=== PATIENT | male | born 1990 | race Caucasian/White ===

== ENCOUNTER 2021-11-25 17:03 | Emergency (ER) | payer OTHER, SELFPAY ==
--- NOTE | 2021-11-25 17:07 | ED.GENADUL_ITS ---
Discharge Plan Disposition Patient Disposition: HOME Condition: Stable Discharge Details Clinical Impression: COVID-19, Medication administered Primary Care Provider: Ella,Local ED Provider: Angie Yi Discharge Instructions Instructions: COVID-19 (Coronavirus Disease 2019) (ED) Additional Instructions: Your kidney function today is within normal limits. You are being given a normal dosing regimen of the anti-viral medication Paxlovid to take as directed until finished. Drink plenty of fluids and get plenty of rest. Alternate tylenol and motrin as needed and directed for pain. Follow-up with your primary care doctor in 1 week. Return to the emergency department with any worsening or new concerning symptoms. Discharge Data Discharge Physician: Angie Yi Medical Decision Making 31-year-old male with a history of developmental delay, asthma, ADHD presents for sinus congestion, postnasal drip and headache for the past 2 days with a home antigen test positive for COVID 3 hours ago. Vitals within normal limits. Patient appears comfortable and nontoxic. He denies any shortness of breath normal lung sounds bilaterally and oxygen saturation 100% on room air. Normal ENT exam. Patient is requesting medication for COVID. As he has a history of asthma, will start Paxlovid. BMP obtained and within normal limits. Paxlovid dispensed. He is visiting from [place]. Advised to follow up with the primary care doctor for re-evaluation. Usual and customary return precautions given prior to discharge. Medical Records Medical records reviewed: Yes I reviewed the patient's medical records. HPI General Mode of arrival: ambulatory . Date/Time Provider Initiated Documentation: 11/25/21 17:07 . Limitations to Documentation: no limitations . Information obtained by: patient and family . HPI Narrative: Patient is a 31-year-old male with a history of developmental delay, asthma, ADHD who presents for nasal congestion, postnasal drip, headache and feeling feverish for the past 2 days. States he is visiting from [place] with his family and was exposed to COVID. He took a home antigen test today which was positive. Patient presents with his father at bedside who states that he felt a positive home antigen result. Patient denies any known documented fever, chest pain, shortness of breath, abdominal pain, vomiting or diarrhea. He states he did take Tylenol and ibuprofen a few hours ago for his symptoms with some relief. He is fully vaccinated for COVID including a booster. He is presenting here today due to request for antiviral medication for COVID. Related Data Allergies Allergy/AdvReac Type Severity Reaction Status Date / Time No Known Allergies Allergy Unverified 11/25/21 17:13 General Stated Complaint: GenMedical Review of Systems All systems reviewed & are unremarkable except as noted in HPI and below Constitutional Constitutional: Denies chills, Denies excessive sweating, Denies fatigue, Denies fever(s), Denies weakness and Denies weight loss Eyes Eyes: Reports system reviewed and no additional complaints, except as documented and Denies blurry vision ENT Ears, Nose, Mouth, and Throat: Denies vertigo, Denies dizziness, Denies otalgia, Reports nasal congestion, Reports post nasal drip, Denies sore throat and Denies throat swelling Cardiovascular Cardiovascular: Denies chest pain, Denies syncope, Denies rapid heart rate and Denies dyspnea Respiratory Respiratory: Denies chest congestion, Denies cough, Denies pain on inspiration and Denies dyspnea Gastrointestinal Gastrointestinal: Denies abdominal pain, Denies diarrhea and Denies vomiting Genitourinary Genitourinary: Denies hematuria, Denies dysuria and Denies flank pain Musculoskeletal Musculoskeletal: Denies back pain and Denies joint swelling Integumentary/Breasts Skin/Breast: Denies lesions and Denies rash Neurologic Neurologic: Denies behavioral changes, Denies confusion, Denies vertigo, Denies dizziness, Denies syncope, Denies localized weakness and Denies weakness Psychiatric Psychiatric: Denies behavioral changes, Denies confusion and Denies depression Endocrine Endocrine: Denies excessive sweating and Denies fatigue Hematologic/Lymphatic Hematologic/Lymphatic: Denies easy bruising and Denies lymphadenopathy Allergic/Immunologic Allergic/Immunologic: Denies throat swelling PFSH All Active Problems (Updated 11/25/21 @ 17:47 by Angie Yi DO) COVID-19 (Acute) Medication administered (Acute) Medical History (Updated 11/25/21 @ 17:47 by Angie Yi DO) ADHD Asthma Cognitive developmental delay History of gastrostomy tube placement Hx of prematurity Born at 28 weeks Surgical History (Updated 11/25/21 @ 17:29 by Angie Yi DO) History of Lety fundoplication History of tracheostomy Social History Smoking/Tobacco Use Status: Never Smoking risk assessment performed?: Yes Substance use type: does not use Do you feel safe at home: Yes Do you feel safe in your relationship?: Yes Exam Const General: cooperative Orientation: alert, awake and oriented x3 HENMT Head: normal to inspection Ears: hearing grossly normal bilaterally, external ears normal and TM's normal bilaterally General nose exam: external nose normal Face and sinus: normal facial exam Mouth: oral mucosae normal Teeth and gingiva: dentition normal Throat: posterior oropharynx normal Eyes General: appearance normal, both eyes and all related structures Eyelids: eyelids normal Pupils: PERRL EOM: EOM intact bilaterally Neck Neck: normal visual inspection Lymphatic: no lymphadenopathy noted Chest Chest: normal inspection of the chest Resp Effort & Inspection: normal respiratory effort and able to speak in complete sentences Auscultation: clear to auscultation bilaterally Cardio Rate: regular rate Rhythm: regular rhythm GI Inspection: normal to inspection Palpation: soft, not firm, no guarding, no hepatosplenomegaly, no masses and nontender Auscultation: normal bowel sounds Back/Spine/Pelvis Back: no CVA tenderness Skin General skin exam: no rashes or lesions noted Neuro General: patient alert and patient awake Cognition: normal cognition Speech: speech normal Gait: normal gait Motor: muscle tone normal throughout Sensory Exam: no sensory deficits noted Extrem General: normal to inspection, full ROM and capillary refill normal Psych Appearance: grossly normal Mental Status: mental status grossly normal Speech and Movement: speech and movement normal Affect: normal affect Thought Process: normal
[2021-11-25 17:09] VITALS: BP 152/84; PULSE 85; RESP 18; TEMP 37.2; O2SAT 100
[2021-11-25 18:13] LABS: BUN 8 mg/dL (7-18); CREATININE 0.8 mg/dL (0.70-1.30); Calcium 8.6 mg/dL (8.5-10.1); Chloride 100 mmol/L (98-107); Glucose 104 mg/dL (74-106); Potassium 3.8 mmol/L (3.5-5.1); Sodium 137 mmol/L (136-145)
[2021-11-25 18:28] VITALS: RESP 17
== END 2021-11-25 18:37 | disposition home or self-care (01) ==
PROVIDERS: Emergency Provider Physician Assistant
DX: U07.1 COVID-19 (principal)
CPT/HCPCS: 36415; 80048; 99283